=== PATIENT | female | born 1990 | race Caucasian/White ===

== ENCOUNTER 2017-03-03 02:30 | Emergency (ER) | payer BC ==
[~2017-03-03] VITALS: Ht 167.6 cm; Wt 125.0 kg
[2017-03-03] MEDS ORDERED: ALPR-475 PO (03:22)
[2017-03-03] MEDS ORDERED: METF500T4 PO (03:22)
[2017-03-03] MEDS ORDERED: SODIUM CHLORIDE 0.9% 1,000ML IVBOLUS ONE (03:30)
[2017-03-03] MEDS ORDERED: SODIUM CHLORIDE FLUSH 10ML SYR IVF ONE (03:30)
[2017-03-03 03:50] LABS: ASPARTATE AMINO TRANSFERASE 14 U/L (15-37); BLOOD UREA NITROGEN 14 mg/dL (7-18)
[2017-03-03 04:52] VITALS: BP 132/70
== END 2017-03-03 04:55 | disposition home or self-care (01) ==
LOC: ED 03:44
DX: R21 Rash and other nonspecific skin eruption (principal); R50.9 Fever, unspecified; E11.9 Type 2 diabetes mellitus without complications; Z91.041 Radiographic dye allergy status
CPT/HCPCS: 36415; 80053; 85025; 86592; 96360; 99284; J7030

== ENCOUNTER 2017-09-02 11:54 | Emergency (ER) | payer BC ==
[~2017-09-02] VITALS: Ht 170.2 cm; Wt 126.6 kg
[~2017-09-02 11:54] MED LIST: ALPR-475 PO; METF500T4 PO
[2017-09-02 11:56] VITALS: BP 130/84
== END 2017-09-02 12:55 | disposition home or self-care (01) ==
LOC: ED 12:38
DX: J02.0 Streptococcal pharyngitis (principal); F41.1 Generalized anxiety disorder; E11.9 Type 2 diabetes mellitus without complications; E28.2 Polycystic ovarian syndrome
CPT/HCPCS: 99283

== ENCOUNTER 2019-03-31 19:09 | Emergency (ER) | payer BC, OTHER ==
[~2019-03-31] VITALS: Ht 170.2 cm; Wt 134.0 kg
[~2019-03-31 19:09] MED LIST changes: +METF500T17 PO; -METF500T4 PO
--- NOTE | 2019-03-31 19:30 | NUR ---
ASSESSMENT MADE. CHART UP FOR MD TO SEE. C/O NEAR SYNCOPE AT WORK WHILE AT BREAK. PATIENT WAS CAUGHT BY HER CO-WORKER. NO TRAUMA. + DIZZINESS. ALSO C/O SORE THROAT X 2-3 DAYS. PAINFUL TO SWALLOW.
[2019-03-31] MEDS ORDERED: DEXAMETHASONE 4 MG TABLET ONE (19:51)
--- NOTE | 2019-03-31 19:54 | NUR ---
pt tolerated po well, no choking/problems swallowing/nausea/vomiting.
[2019-03-31] MEDS ORDERED: DEXAMETHASONE 4 MG TABLET PO ONE (20:00)
[2019-03-31 21:27] VITALS: BP 135/58
--- NOTE | 2019-03-31 21:27 | NUR ---
pt given dc instructions with work note
== END 2019-03-31 21:28 | disposition home or self-care (01) ==
LOC: ED 20:18
DX: R55 Syncope and collapse (principal); J02.0 Streptococcal pharyngitis
CPT/HCPCS: 93005; 99283

== ENCOUNTER 2020-12-07 03:57 | Emergency (ER) | payer OTHER ==
[~2020-12-07] VITALS: Ht 170.2 cm; Wt 146.0 kg
[~2020-12-07 03:57] MED LIST changes: -ALPR-475 PO; +ALPR0.5T7 PO
--- NOTE | 2020-12-07 04:34 | NUR ---
PT TO BATHROOM WITH STEADY GAIT TO PROVIDE URINE SAMPLE. PT VERBALIZED UNDERSTANDING OF CLEAN CATCH INSTRUCTIONS.
--- NOTE | 2020-12-07 04:57 | NUR ---
ERP AT BEDSIDE
--- NOTE | 2020-12-07 05:02 | NUR ---
PT SITTING UPRIGHT ON JENNIFER TOMLINSON, VSS. PT DENIES ANY NEEDS AT THIS TIME. CALL LIGHT AND PERSONAL BELONGINGS WITHIN REACH.
[2020-12-07 05:40] LABS: MICROSCOPIC INDICATED
[2020-12-07 05:46] LABS: BASOPHILS % (AUTO) 1 % (0-1); EOSINOPHILS % (AUTO) 3 % (1-7); LYMPHOCYTES % (AUTO) 33 % (22-44); MEAN CORPUSCULAR HEMOGLOBIN 27.6 pg (27.0-34.8); MEAN CORPUSCULAR HGB CONC 32.6 g/dL (32.4-35.8); MEAN PLATELET VOLUME 9.5 fL (7.4-10.4); MONOCYTES % (AUTO) 6 % (2-9); NEUTROPHILS % (AUTO) 57 % (42-75); PLATELET COUNT 249 x10^3/uL (130-400); RED BLOOD COUNT 4.82 x10^6/uL (3.82-5.3); RED CELL DISTRIBUTION WIDTH 15.2 % (9.6-15.2)
[2020-12-07 05:47] LABS: MD NO
[2020-12-07 05:56] LABS: ALANINE AMINOTRANSFERASE 51 U/L (12-78); ALBUMIN 3.1 g/dL (3.4-5.0); ANION GAP 7 mmol/L (5-15); CALCIUM 8.4 mg/dL (8.5-10.1); CHLORIDE 109 mmol/L (98-107); CREATININE 0.83 mg/dL (0.55-1.02)
[2020-12-07 06:00] LABS: ALKALINE PHOSPHATASE 88 U/L (45-117); BILIRUBIN,TOTAL 0.2 mg/dL (0.2-1.0); TOTAL PROTEIN 7.2 g/dL (6.4-8.2)
[2020-12-07] MEDS ORDERED: KETOROLAC 60 MG/2 ML ONE (06:16)
[2020-12-07] MEDS ORDERED: PHENAZOPYRIDINE 200 MG TABLET ONE (06:16)
[2020-12-07 06:24] VITALS: BP 130/70
--- NOTE | 2020-12-07 06:24 | NUR ---
Patient given discharge instructions and they have confirmed that they understand the instructions. Patient ambulatory with steady gait.
[2020-12-07] MEDS ORDERED: PHENAZOPYRIDINE 200 MG TABLET PO ONE (06:30)
[2020-12-07] MEDS ORDERED: KETOROLAC 60 MG/2 ML IM ONE (06:30)
== END 2020-12-07 06:34 | disposition home or self-care (01) ==
LOC: ED 05:18
DX: N93.8 Other specified abnormal uterine and vaginal bleeding (principal); N39.0 Urinary tract infection, site not specified; R10.2 Pelvic and perineal pain; E11.9 Type 2 diabetes mellitus without complications
CPT/HCPCS: 36415; 80053; 81001; 84703; 85025; 87086; 96372; 99283; J1885